=== PATIENT | male | born 1950 | race Caucasian/White ===

== ENCOUNTER 2017-03-04 08:57 | Inpatient (IN) ==
--- NOTE | 2017-03-04 07:17 | Anesthesia Evaluation PreOp ---
Date of Encounter: 03/04/17 Time of Encounter: 09:34 - Past History Planned Operation: Endograft AAA Cardiac History: HTN, Hyperlipidemia, Cardiac Stent (x2 in 2007, repeat cath 2016 without intervention per patient), Other (ischemic heart disease PAD) Pulmonary History: Smoker, Pack/yr (40) [employer] History: Other (complains of neuropathic pain in bilateral legs) Other Medical History: Denies Any Significant HX, Diabetes Type II (He reports he is pre-diabetic) Anesthesia History: No Prior Anesthetic Complications, Past Anesthesia ( bilateral TKA,) Alcohol Use: none Drug use: none Medications and Allergies 3 Allergy/AdvReac Type Severity Reaction Status Date / Time No Known Allergies Allergy Unverified 10/10/16 12:11 - Meds/Allergy Pre-op Review Medications Reviewed: Yes Allergies Reviewed: Yes Beta Blockers on Current Med List: Yes If Beta Blockers taken, Date/Time (Last Dose taken): today about 0700 Anesthesia Results - Labs Laboratory Tests 10/10/16 02/11/17 02/11/17 12:20 13:04 13:04 Hgb 13.6 Hct 40.3 Plt Count 228 PT 11.0 INR 1.0 APTT 28.9 Sodium Potassium BUN Creatinine Est GFR (Non-Af Amer) 02/27/17 15:46 Hgb Hct Plt Count PT INR APTT Sodium 134 L Potassium 4.4 BUN 29 H Creatinine 1.35 H Est GFR (Non-Af Amer) 53 L - Imaging EKG: report reviewed (NSR) Additional studies: echo: Impressions: Sinus bradycardia. HR 40-50's LVEF 50-55%. Mild left ventricular diastolic dysfunction. Normal right ventricular structure and function. Mild aortic regurgitation. Borderline evidence for aortic stenosis. Mild mitral regurgitation. Mild tricuspid regurgitation. No pulmonary hypertension. Stress: Perfusion imaging was positive for ischemia - small size partially reversible perfusion defect of the apical lateral wall. Diagnostic sensitivity of inferior wall ischemia reduced secondary to significant hepatic uptake (suspect hepatomegaly). Cannot ruleout inferior ischemia. Pharmacologic ECG was non diagnostic for ischemia. Patient had no chest pain with stress. Gated EF = 51%. The LV is not dilated. There is no evidence of TID. Ordering physician notified via eCW Anesthesia Exam Selected Entries 03/04/17 09:22 Temperature 97.4 F L Pulse Rate 62 Respiratory Rate 18 Blood Pressure 141/74 O2 Sat by Pulse Oximetry 95 Weight: 111kg NPO (# of Hours): 8 - HEENT Pupil (Motor): EOMI Mallampati: III Teeth: Missing, Poor dentition Oral Opening: Greater than 3 - [employer] LOC: Oriented [employer]ATOR Motor: Normal RUE, Normal LUE, Normal RLE, Normal LLE, Normal Face [employer] Sensory: Normal: RUE, LUE, RLE, LLE, Face - Cardiac Rhythm: Regular Murmur: Systolic (grade 2) JVD: No - Pulmonary Breath Sounds: bilateral Clear Respiratory Effort: Symmetrical Anesthesia Assess/Plan ASA Score: 4 Modified Jessica Scale for Level of Consciousness: Cooperative, oriented, and tranquil Anesthetic Plan: General Monitoring Plan: Standard Monitors, A-Line Recovery Plan: PACU (Discussed GA, lines and potential need for blood products, agrees to proceed)
[2017-03-04] MEDS ORDERED: CeFAZolin Syr 2,000MG/20 ML 2,000 MG/20 ML SYRINGE IVPB ONE (09:14)
[2017-03-04] MEDS ORDERED: Lidocaine -MPF 1% 2 ML VIAL ID ONE (09:14)
[2017-03-04] MEDS ORDERED: Vancomycin 1,750 MG in D5% in Water 500 ML IVPB ONE (09:14)
[2017-03-04] MEDS ORDERED: Ringers Solution, Lactated 1,000 ML IVC SCH (09:15)
[2017-03-04] MEDS ORDERED: Albuterol 2.5 MG/3 ML NEBULIZER IH ONE (09:38)
[2017-03-04] MEDS ORDERED: Heparin 1,000 UNITS/500 mL NS 1,500 ML ONE (10:00)
--- NOTE | 2017-03-04 10:01 | History & Physical Report ---
Date of Encounter: 03/04/17 Time of Encounter: 09:55 24 Hour HP Update - Instructions Instructions: If the History and Physical is less than 30 days old and was completed prior to A.M. admission and or procedure and has NOT been updated on calendar day of procedure please complete this update prior to performing procedure. - Update Patient reports changes in Medical Condition: No Changes in examination, assessment, or condition: No Changes in Medication: No Preop tests/diagnostics Reviewed: Yes Surgery Remains Indicated: Yes Consent for Planned Operative Procedure(s) Verified: Yes - Pre-Operative Checklist Preoperative Checklist Indicated: Yes Prophylactic Antibiotic Ordered: Yes (vancomycin due to MRSA risk) Home Medications Include Beta Godfrey: Yes Beta Godfrey Taken Today (Day of Surgery): Yes Beta Godfrey Taken Yesterday (Day Prior to Surgery): Yes Is VTE Prophylaxis Indicated?: Yes
[2017-03-04] MEDS ORDERED: Ondansetron 4 MG/2 ML VIAL IVP ONE (12:12)
[2017-03-04] MEDS ORDERED: *HR* Promethazine 25 MG/ML VIAL IVP PRN (12:12)
[2017-03-04] MEDS ORDERED: *HR* Labetalol 20 MG/4 ML SYRINGE IVP PRN ×2 (12:12→15:55)
[2017-03-04] MEDS ORDERED: EPHEDrine 50 MG/ML VIAL ONE (12:34)
[2017-03-04] MEDS ORDERED: *HR* FentaNYL (PF) 100 MCG/2 ML VIAL ONE (12:34)
[2017-03-04] MEDS ORDERED: Dexamethasone 4 MG/ML VIAL ONE (12:34)
[2017-03-04] MEDS ORDERED: *HR* Propofol 200 MG/20 ML VIAL IVP ONE (12:34)
[2017-03-04] MEDS ORDERED: Lidocaine -MPF 4% 5 ML AMPUL ONE (12:34)
[2017-03-04] MEDS ORDERED: Ondansetron 4 MG/2 ML VIAL ONE (12:34)
[2017-03-04] MEDS ORDERED: *HR* Heparin 5,000 UNIT/ML VIAL ONE (12:34)
[2017-03-04] MEDS ORDERED: *HR* Succinylcholine 200 MG/10 ML VIAL IVP ONE (12:34)
[2017-03-04] MEDS ORDERED: *HR* Phenylephrine 10 MG/ML VIAL ONE (12:34)
[2017-03-04] MEDS ORDERED: *HR* Midazolam HCl 2 MG/2 ML VIAL ONE ×2 (12:34)
[2017-03-04] MEDS ORDERED: Heparin 1,000 UNITS/500 mL NS 500 ML ONE (12:34)
[2017-03-04] MEDS ORDERED: Lidocaine -MPF 2% 2 ML VIAL ONE ×2 (12:34)
[2017-03-04] MEDS ORDERED: *HR* Rocuronium Bromide 50 MG/5 ML VIAL ONE (12:34)
[2017-03-04] MEDS ORDERED: *HR* HYDROmorphone 2 MG/ML SYRINGE ONE (13:20)
--- NOTE | 2017-03-04 14:17 | Operative Note ---
Date of procedure: 03/04/17 Pre-op diagnosis: 5.3cm Abdominal Aortic Aneurysm Post-op diagnosis: same Procedure: 1. Introduction of catheter into the aorta via right common femoral artery. 2. Introduction of catheter into the aorta via left common femoral artery. 3. Right femoral vessel exposure for endograft placement. 4. Left femoral vessel exposure for endograft placement. 5. Endograft repair of abdominal aortic aneurysm with Cook Zenith graft and two docking limbs including radiologic supervision and interpretation. Complications: None Anesthesia: GETA Surgeon: Sean Portillo Estimated blood loss (cc): 100 Specimen: None Condition: stable Disposition: PACU Procedure in Detail: Indications: The patient is a 66 year old male with a history of coronary artery disease, hypertension, diabetes and tobacco abuse. He was found to have a 5.3cm infrarenal abdominal aortic aneurysm. His anatomy was appropriate for endograft placement. Repair was recommended to reduce his risk of rupture. Procedure: The patient was identified, brought to the operating room and placed in the supine position on the operating room table. After induction of general endotracheal anesthesia, the patient was cleaned and draped in normal sterile fashion. Oblique incisions were made over both groins sharply. Hemostasis was obtained with electrocautery. Using blunt and sharp and electrocautery dissection, the right and left common, deep and superficial femoral arteries were dissected circumferentially and surrounded with Vesseloops. At this point, the patient received 5000 units of heparin intravenously and then bilateral femoral punctures with large-bore needles were performed. Bentson wires were advanced into the aorta under fluoroscopic view. Given the anatomy, the main body was selected to be the right side of the patient. The needles were exchanged for bilateral #8-Hungarian sheaths and a long Pigtail catheter was advanced over the right wire into the aortic arch. The wire was replaced with a Lunderquist wire. The catheter was removed and repositioned in the suprarenal aorta via the left femoral artery. The main body was inserted over the Lunderquist wire with the contralateral limb being in the anterolateral position. An aortogram was then performed at the level of the renal artery. The graft was positioned just below the renal arteries and the first 2 segments were deployed. A repeat aortogram revealed adequate infrarenal placement. The graft was then deployed until the contralateral limb exposed. After confirming adequate infrarenal placement, the suprarenal stent was deployed in the usual fashion. The contralateral limb was then selected with a Bentson wire using a guiding catheter. Intragraft placement of the wire was confirmed by placing the pigtail and spinning it freely as well as injecting a small amount of contrast. An oblique view of the pelvis was performed with contrast to size the left extension limb. The #8-Hungarian sheath was removed and exchanged for the appropriate limb, which was advanced under fluoroscopic view and positioned. It was then expanded and the introducer was removed. The remaining portion of the main body was deployed, the top cap was retrieved and the introducer was removed. An oblique view of the right pelvis was performed in a similar fashion to determine the length of the graft on the right. The graft extension was then advanced on the right and positioned in the usual fashion. Upon completion of the graft docking limb extension, a Coda balloon was then advanced into the graft proximal and distal endpoints as well as overlap were expanded with gentle pressure. The balloon was left in the suprarenal position and a Flush catheter was placed in the suprarenal aorta. A Flush completion angiogram revealed no evidence of an endoleak. Tension was applied to the Vesseloops in the groin. The bilateral sheaths were then removed. After confirming hemodynamic stability, the wires were then removed. The bilateral arteriotomies were repaired with a running 6-0 Prolene. Antibiotic irrigation was infused into the groin. Platelet rich and platelet poor plasma were infused into the incisions. The bilateral groins were closed with a single layer of 2-0 Vicryl followed by two layers of 3-0 Vicryl followed by a layer of 3-0 monocryl in the subcuticular region. Sterile dressings were applied. The patient was then extubated and taken to the recovery room in stable condition.
[2017-03-04] MEDS: *HR* HYDROmorphone (PF) 1 MG/ML SYRINGE IVP PRN ×4 (14:30→15:01)
--- NOTE | 2017-03-04 15:05 | Anesthesia Evaluation Post Op ---
Date of Encounter: 03/04/17 Time of Encounter: 15:04 - Vital Signs Vital Signs: Selected Entries 03/04/17 14:46 03/04/17 14:56 Temperature 98.1 F Pulse Rate 60 Respiratory Rate 18 Blood Pressure 114/70 O2 Sat by Pulse Oximetry 96 - Lungs Lungs: Clear Ascult./Percussion - Airway Airway: Non-obstructed - Cardiovascular Regular Rate - Mental Status Mental Status: Alert & Oriented, Answers Appropriately - Pain Pain Scale: 0 Pain Scale used: Numeric (1 - 10) - Nausea Vomiting Nausea Vomiting: Not Present - Hydration Hydration: Ice chips, Puente catheter - Discharge PostOp Status: Transfer Patient to floor
[2017-03-04] MEDS ORDERED: Dextrose Gel 15 GM PO PRN ×2 (15:55)
[2017-03-04] MEDS ORDERED: Ondansetron 4 MG/2 ML VIAL IVP PRN (15:55)
[2017-03-04] MEDS ORDERED: *HR* Dextrose 50 % in Water (Syg) 50 ML SYRINGE IVP PRN (15:55)
[2017-03-04] MEDS ORDERED: D5% in Water 1,000 ML IVC PRN (15:55)
[2017-03-04] MEDS ORDERED: *HR* Morphine 2 MG/ML SYRINGE IVP PRN (15:55)
[2017-03-04] MEDS ORDERED: Acetaminophen 325 MG TABLET PO PRN (15:55)
[2017-03-04] MEDS ORDERED: *HR* HYDROcodone/Acet 5/325 mg TABLET PO PRN (15:55)
[2017-03-04] MEDS ORDERED: Naloxone 0.4 MG/ML INJ IVP PRN (15:55)
[2017-03-04] MEDS: *HR* OxyCODONE Immed Rel 5 MG TABLET PO PRN (16:28)
[2017-03-04] MEDS: 0.9 % Sodium Chloride 1,000 ML IVC SCH (16:29)
[2017-03-04] MEDS: Pregabalin 50 MG CAPSULE PO SCH ×2 (16:29→21:57)
[2017-03-04] MEDS: Insulin LISPRO 300 UNITS/3 ML VIAL SQ SCH (16:30)
[2017-03-04] MEDS: CeFAZolin Premix DUPLEX 2,000 MG/50 ML BAG IVPB SCH (16:32)
[2017-03-04] MEDS: *HR* Metoprolol 5 MG/5 ML VIAL IVP SCH (18:10)
[2017-03-04] MEDS ORDERED: Insulin LISPRO 300 UNITS/3 ML VIAL SQ SCH (21:00)
[2017-03-05] MEDS: *HR* Metoprolol 5 MG/5 ML VIAL IVP SCH ×2 (00:36→06:18)
[2017-03-05] MEDS: *HR* OxyCODONE Immed Rel 5 MG TABLET PO PRN ×2 (00:40→06:14)
[2017-03-05] MEDS: CeFAZolin Premix DUPLEX 2,000 MG/50 ML BAG IVPB SCH (00:41)
[2017-03-05 05:23] LABS: Basophils % 0.2 %; Eosinophils % 0.1 %; Hematocrit 36.2 % (37.5-50.1); Hemoglobin 12.2 g/dL (12.9-16.9); Immature Granulocytes % 0.7 % (0-4); Lymphocytes # 1.2 K/mcL (0.6-4.6); Lymphocytes % 9.2 %; Mean Corpuscular HGB Conc 33.7 g/dL (31.6-35.5); Mean Corpuscular Hemoglobin 32.5 pg (28.0-33.3); Mean Corpuscular Volume 96.5 fL (83.0-100.0); Mean Platelet Volume 11.9 fL (9.4-12.4); Monocytes % 7.8 %; Neutrophils # 10.3 K/mcL (1.6-8.9); Platelet Count 158 K/mcL (140-400); Red Blood Count 3.75 M/mcL (4.19-5.50); Red Cell Distribution Width 14.2 % (11.5-14.5)
[2017-03-05 05:38] LABS: BUN/Creatinine Ratio 18 (6-26); Blood Urea Nitrogen 21 mg/dL (8-26); Calcium 8.8 mg/dL (8.6-10.8); Carbon Dioxide 23 mEq/L (19-29); Chloride 99 mEq/L (98-109); Glucose 136 mg/dL (70-99); Osmolality,Calculated 279 (280-300); Sodium 132 mEq/L (136-145); eGFR For African Americans > 60 (> 60); eGFR For Non-African Americans > 60 (> 60)
[2017-03-05] MEDS ORDERED: *HR* Heparin 5,000 UNIT/ML VIAL SQ SCH ×2 (06:00)
[2017-03-05 07:30] VITALS: BP 116/72
[2017-03-05] MEDS: Insulin LISPRO 300 UNITS/3 ML VIAL SQ SCH ×2 (07:46→12:18)
[2017-03-05] MEDS: Pregabalin 50 MG CAPSULE PO SCH (07:47)
[2017-03-05] MEDS ORDERED: CeFAZolin Syr 2,000MG/20 ML 2,000 MG/20 ML SYRINGE IVPB SCH (08:00)
--- NOTE | 2017-03-05 08:03 | Discharge Summary ---
Date of Encounter: 03/05/17 Time of Encounter: 08:20 - Discharge Diagnosis (1) Abdominal aortic aneurysm Priority: Primary Status: Chronic Comments: The patient is postoperative day #1 after endograft repair of his abdominal aortic aneurysm. He is hemodynamically stable and his pain is well controlled. His incisions are healing. He is tolerating a diet. He will be discharged today. Qualifiers: Presence of rupture: without rupture Qualified Code(s): I71.4 - Abdominal aortic aneurysm, without rupture (2) Essential hypertension Priority: Secondary Status: Chronic (3) Mixed hyperlipidemia Priority: Secondary Status: Chronic Comments: The patient has acute expected postoperative blood loss anemia. He is hemodynamically stable without evidence of ongoing blood loss. (4) Acute blood loss anemia Priority: Secondary Status: Acute Comments: The patient has acute expected postoeprative blood loss anemia. He is hemodynamically stable without evidence of ongoing blood loss. (5) Tobacco abuse Priority: Secondary Status: Chronic Comments: He was counseled regarding smoking cessation. - Discharge Medications Prescriptions: OxyCODONE/APAP 5/325 [Percocet 5/325 MG] 1 each PO Q6HR PRN #25 tablet PRN Reason: POSTOPERATIVE PAIN Home Medications: Aspirin [Lo-Dose Aspirin EC] 81 mg PO DAILY 03/04/17 [History] Atorvastatin [Lipitor] 40 mg PO HS 03/04/17 [History] Clopidogrel [Plavix] 75 mg PO DAILY 03/04/17 [History] Lisinopril [Zestril] 20 mg PO DAILY 03/04/17 [History] Metoprolol [Lopressor] 25 mg PO BID 03/04/17 [History] Omeprazole [PriLOSEC] 20 mg PO DAILY 03/04/17 [History] Pregabalin [Lyrica] 200 mg PO TID 03/04/17 [History] metFORMIN [Glucophage] 500 mg PO 0800 03/04/17 [History] OxyCODONE/APAP 5/325 [Percocet 5/325 MG] 1 each PO Q6HR PRN #25 tablet 03/05/17 [Rx] Allergies/Adverse Reactions: 3 Allergy/AdvReac Type Severity Reaction Status Date / Time No Known Allergies Allergy Verified 03/04/17 09:45 Date of admission: 03/04/17 15:10 Primary care physician: Chuckie Byrne, DO Procedure(s) Performed: Endograft repair of abdominal aortic aneurysm Discharging clinician: Sean Portillo Anticipated date of discharge: 03/05/17 - Patient Status Disposition: Home, Self-Care Condition: Good Functional capacity at discharge: independent ambulation Overall status at discharge: patient is back to baseline - Discharge Instructions Follow Up With: Sean Portillo MD [Partnered Physician] - 04/08/17 1:00 pm Chuckie Byrne DO [Primary Care Provider] - 03/10/17 1:00 pm () Additional Instructions: May remove bandage and shower 03/06/17. Wash wound gently and pat to dry. Apply dry gauze to wounds daily for 7 days. No tub baths or swimming until 03/28/17. Call Dr. Portillo at [phone] with questions or concerns. HOLD METFORMIN UNTIL 03/06/17. - Diet and Activity Activity: increase activity as tolerated Diet: diabetic diet - Hospital Course Hospital course: Mr. Rueda is a 66 year old male admitted on 03/04/17. He was taken to the OR and underwent an endograft repair of his abdominal aortic aneurysm. He tolerated the procedure well and was discharged to home on postoprative day #1 without complications. Time spent discussing smoking cessation with patient: 3 to 10 minutes - Time Spent with Patient Total time spent providing and/or coordinating discharge services: Exam Vital Signs, Last 4 Hours Temp Pulse Resp BP Pulse Ox 03/05/17 07:27 97.6 F 55 18 116/72 98 General: Present: Conversant, No Apparent Distress HEENT: Present: Atraumatic, Pupils equal Cardiac: Present: Reg Rate and Rhythm Lungs: Present: Normal Breath Sounds Neuro: Present: Alert and responsive, No focal deficits noted Abdomen: Present: Soft, Non-tender. Absent: Masses Vascular: Present: Normal capillary refill, Surgical incisions (no hematoma). Absent: Cyanosis, Edema Skin: Present: No rashes noted on visualized skin - VTE Documentation of Mechanical Device: Intermittent pneumatic compression device
[2017-03-05] MEDS ORDERED: Lisinopril 20 MG TABLET PO SCH (09:00)
[2017-03-05] MEDS ORDERED: Aspirin Enteric Coated 81 MG Tablet PO SCH (09:00)
[2017-03-05] MEDS: 0.9 % Sodium Chloride 1,000 ML IVC SCH (12:17)
== END 2017-03-05 13:25 | disposition home or self-care (01) | DRG 269 ==
LOC: SAMDAY 08:57 → 2NNU 15:10
PROVIDERS: ADMIT Surgery; ATTEND Surgery

== ENCOUNTER 2017-05-23 14:25 | Inpatient (IN) ==
[2017-05-23] MEDS ORDERED: *HR* OxyCODONE/APAP 5/325 TABLET PO ONE (14:45)
--- NOTE | 2017-05-23 15:03 | Emergency Department Note ---
Disposition Clinical Impression: Pain and swelling of right knee, Hyponatremia Disposition: Still a Patient Condition: Fair Referrals: Chuckie Byrne DO [Primary Care Provider] - Forms: ED Satisfaction Letter Time of Disposition: 18:57 Extremity Problem HPI - General Chief complaint: ED Extremity Problem,Nontraumatic Stated complaint: R knee swelling Time Seen by Provider: 05/23/17 14:43 Source: patient Limitations: no limitations Nursing Notes Reviewed: Yes Vital Signs Reviewed: Yes - History of Present Illness HPI Narrative: Alert and oriented and nontoxic-appearing 66-year-old male presents for evaluation of right knee pain and swelling. He states this began approximately one week ago. He believes that the offending incident was while he was walking up the steps of his porch, he felt "my kneecap Crunched". He also complains of pain behind the knee as well. He denies any falls or any other injuries. He denies any fever, chills, nausea, vomiting, shortness of breath, or calf pain/ swelling. Pt Subjective Complaint: joint swelling, joint paint Onset (ago): week(s) (1) Consistency: Worsening Injury Location: right, knee Pain Scale: 0 Quality: aching Improves with: nothing Worsens with: range of motion, weight bearing, walking, palpation Associated symptoms: Denies: fever - Related Data Home Medications Medication Instructions Recorded Confirmed Aspirin [Lo-Dose Aspirin EC] 81 mg PO DAILY 03/04/17 03/04/17 Atorvastatin [Lipitor] 40 mg PO HS 03/04/17 03/04/17 Clopidogrel [Plavix] 75 mg PO DAILY 03/04/17 03/04/17 Lisinopril [Zestril] 20 mg PO DAILY 03/04/17 03/04/17 Metoprolol [Lopressor] 25 mg PO BID 03/04/17 03/04/17 Omeprazole [PriLOSEC] 20 mg PO DAILY 03/04/17 03/04/17 Pregabalin [Lyrica] 200 mg PO TID 03/04/17 03/04/17 metFORMIN [Glucophage] 500 mg PO 0800 03/04/17 03/04/17 Previous Rx's Medication Instructions Recorded OxyCODONE/APAP 5/325 [Percocet 1 each PO Q6HR PRN #25 tablet 03/05/17 5/325 MG] Docusate Sodium [Colace] 100 mg PO BID #20 capsule 03/14/17 OxyCODONE/APAP 5/325 [Percocet 1 each PO Q6HR PRN #9 tablet 03/14/17 5/325 MG] Allergies Allergy/AdvReac Type Severity Reaction Status Date / Time No Known Allergies Allergy Verified 03/04/17 09:45 All systems ED: reviewed and negative except as stated. Constitutional: Denies: fever, chills, weakness, weight change Eyes: Denies: eye pain, eye discharge, vision change ENT ED: Denies: ear pain, throat pain, dental pain, hearing loss, epistaxis, congestion, dysphagia Cardiovascular: Denies: chest pain, palpitations, dyspnea on exertion, edema, syncope Respiratory: Denies: cough, dyspnea, wheezes, hemoptysis, stridor Gastrointestinal: Denies: abdominal pain, nausea, vomiting, diarrhea, constipation, hematemesis, melena, hematochezia Genitourinary: Denies: urgency, dysuria, frequency, hematuria Musculoskeletal: Reports: as per HPI, arthralgia (Right knee pain and swelling) . Denies: back pain, neck pain, myalgia Integumentary: Denies: rash, abrasion, lesions Neurological: Denies: headache, weakness, numbness, paresthesias, confusion, abnormal gait, vertigo Psychiatric: Denies: anxiety, depression, suicidal thoughts, homicidal thoughts , auditory hallucinations, visual hallucinations Endocrine: Denies: fatigue Hematological/Lymphatic: Denies: easy bleeding, easy bruising Allergic/Immunologic: Denies: facial swelling, urticaria Past Medical History - Past Medical History Attestation: Yes The following information was validated with the patient. Source: patient, nursing notes reviewed Medical history: Reports: diabetes, GERD, hyperlipidemia, hypertension, myocardial infarction Psychiatric history: Reports: no psych history - Social History Smoking Status: Current every day smoker Smokeless Tobacco Status: No Alcohol use: Reports: occasionally Drug use: Reports: none Physical Exam - General Limitations: no limitations General appearance: alert, anxious - Eye Eye exam: Present: normal appearance, PERRL, EOMI. Absent: nystagmus - ENT ENT exam: mucous membranes moist - Neck Neck exam: Present: normal inspection, full ROM, trachea midline - Chest Chest inspection: Present: normal inspection, symmetric chest wall rise - Extremities Exam Extremities exam: Present: joint swelling. Absent: pedal edema - Expanded Lower Extremity Exam Upper leg exam: Present: normal inspection, full ROM Knee exam: Present: tenderness (Right knee diffusely tender to palpation), swelling (Noticeable edema of the right), crepitus, erythema, pain with valgus, pain with varus, knee extension intact. Absent: full ROM (Range of motion limited by pain, right knee), abrasion, laceration, ecchymosis, deformity Lower leg exam: Present: normal inspection, full ROM. Absent: palpable cord, Homans' sign Ankle exam: Present: normal inspection, full ROM Foot/toe exam: Present: normal inspection, full ROM Neurovascular/Tendon exam: Absent: motor deficit, sensory deficit, tendon deficit Gait: observed and limited by pain - Neurological Exam Neurological exam: Present: alert, oriented X3 - Psychiatric Psychiatric exam: Present: normal affect, normal mood - Skin Skin exam: Present: warm, dry, intact, normal color Course Course Narrative: 1804: I spoke with Dr. Storey, orthopedic surgeon hair salon manager. Dr. Storey states the joint will require aspiration. He has offered to come to the emergency department and perform the services which is gratefully welcomed. I have discussed this patient's case with Dr. Shoemaker. Dr. Shoemaker has had a [id number] evaluation with patient. 1850: Dr. Storey has finished removing 370 mL of bloody/purulent fluid from the synovium of the right knee. Samples of this at first Gram stain, cell count , culture, and crystal analysis. Vital Signs Temperature 97.8 F 05/23/17 14:34 Pulse Rate 70 05/23/17 14:34 Respiratory Rate 18 05/23/17 14:34 Blood Pressure 112/68 05/23/17 14:34 O2 Sat by Pulse Oximetry 96 05/23/17 14:34 Temperature 97.9 F 05/23/17 17:22 Pulse Rate 59 05/23/17 17:22 Respiratory Rate 18 05/23/17 17:22 Blood Pressure 98/65 05/23/17 17:22 O2 Sat by Pulse Oximetry 95 05/23/17 17:22 Oxygen Delivery Oxygen Delivery Room Air Extremity Problem, Nontraumati - Medical Records Medical records reviewed: Yes I reviewed the patient's medical records. - Lab Data Lab results reviewed: Yes I reviewed the patient's lab results. Lab results narrative: Lab Results 05/23/17 05/23/17 05/23/17 Range/Units 15:24 15:24 15:24 WBC 12.2 H (4.3-11.1) K/mcL RBC 3.72 L (4.19-5.50) M/mcL Hgb 11.2 L (12.9-16.9) g/dL Hct 33.3 L (37.5-50.1) % MCV 89.5 (83.0-100.0) fL MCH 30.1 (28.0-33.3) pg MCHC 33.6 (31.6-35.5) g/dL RDW 14.2 (11.5-14.5) % Plt Count 324 (140-400) K/mcL MPV 10.0 (9.4-12.4) fL Immature Gran % 1.2 (0-4) % Seg Neutrophils % 74.9 % Lymphocytes % 11.2 % Monocytes % 11.6 % Eosinophils % 0.4 % Basophils % 0.7 % Neutrophils # 9.1 H (1.6-8.9) K/mcL Lymphocytes # 1.4 (0.6-4.6) K/mcL Monocytes # 1.4 H (0.0-1.3) K/mcL Eosinophils # 0.1 (0.0-0.6) K/mcL Basophils # 0.1 (0.0-0.2) K/mcL ESR 124 H (0-10) mm/hr Sodium (136-145) mEq/L Potassium (3.5-5.1) mEq/L Chloride (98-107) mEq/L Carbon Dioxide (23-29) mEq/L BUN (8-23) mg/dL Creatinine (0.70-1.30) mg/dL Est GFR ( Amer) (> 60) Est GFR (Non-Af Amer) (> 60) BUN/Creatinine Ratio (6-26) Glucose (70-105) mg/dL Calculated Osmolality (280-300) Uric Acid (2.3-7.6) mg/dL Calcium (8.6-10.3) mg/dL C-Reactive Protein (Less than 10) mg/L Specimen Rejected Miscellaneous 05/23/17 Range/Units 16:17 WBC (4.3-11.1) K/mcL RBC (4.19-5.50) M/mcL Hgb (12.9-16.9) g/dL Hct (37.5-50.1) % MCV (83.0-100.0) fL MCH (28.0-33.3) pg MCHC (31.6-35.5) g/dL RDW (11.5-14.5) % Plt Count (140-400) K/mcL MPV (9.4-12.4) fL Immature Gran % (0-4) % Seg Neutrophils % % Lymphocytes % % Monocytes % % Eosinophils % % Basophils % % Neutrophils # (1.6-8.9) K/mcL Lymphocytes # (0.6-4.6) K/mcL Monocytes # (0.0-1.3) K/mcL Eosinophils # (0.0-0.6) K/mcL Basophils # (0.0-0.2) K/mcL ESR (0-10) mm/hr Sodium 119 L* (136-145) mEq/L Potassium 6.0 H (3.5-5.1) mEq/L Chloride 92 L (98-107) mEq/L Carbon Dioxide 21 L (23-29) mEq/L BUN 21 (8-23) mg/dL Creatinine 1.70 H (0.70-1.30) mg/dL Est GFR ( Amer) 49 L (> 60) Est GFR (Non-Af Amer) 41 L (> 60) BUN/Creatinine Ratio 12 (6-26) Glucose 102 (70-105) mg/dL Calculated Osmolality 251 L (280-300) Uric Acid 5.0 (2.3-7.6) mg/dL Calcium 8.9 (8.6-10.3) mg/dL C-Reactive Protein 106 H (Less than 10) mg/L Specimen Rejected Result diagrams: 05/23/17 15:24 05/23/17 16:17 Lab Results 05/23/17 05/23/17 05/23/17 Range/Units 15:24 15:24 15:24 WBC 12.2 H (4.3-11.1) K/mcL RBC 3.72 L (4.19-5.50) M/mcL Hgb 11.2 L (12.9-16.9) g/dL Hct 33.3 L (37.5-50.1) % MCV 89.5 (83.0-100.0) fL MCH 30.1 (28.0-33.3) pg MCHC 33.6 (31.6-35.5) g/dL RDW 14.2 (11.5-14.5) % Plt Count 324 (140-400) K/mcL MPV 10.0 (9.4-12.4) fL Immature Gran % 1.2 (0-4) % Seg Neutrophils % 74.9 % Lymphocytes % 11.2 % Monocytes % 11.6 % Eosinophils % 0.4 % Basophils % 0.7 % Neutrophils # 9.1 H (1.6-8.9) K/mcL Lymphocytes # 1.4 (0.6-4.6) K/mcL Monocytes # 1.4 H (0.0-1.3) K/mcL Eosinophils # 0.1 (0.0-0.6) K/mcL Basophils # 0.1 (0.0-0.2) K/mcL ESR 124 H (0-10) mm/hr Sodium (136-145) mEq/L Potassium (3.5-5.1) mEq/L Chloride (98-107) mEq/L Carbon Dioxide (23-29) mEq/L BUN (8-23) mg/dL Creatinine (0.70-1.30) mg/dL Est GFR ( Amer) (> 60) Est GFR (Non-Af Amer) (> 60) BUN/Creatinine Ratio (6-26) Glucose (70-105) mg/dL Calculated Osmolality (280-300) Uric Acid (2.3-7.6) mg/dL Calcium (8.6-10.3) mg/dL C-Reactive Protein (Less than 10) mg/L Specimen Rejected Miscellaneous 05/23/17 Range/Units 16:17 WBC (4.3-11.1) K/mcL RBC (4.19-5.50) M/mcL Hgb (12.9-16.9) g/dL Hct (37.5-50.1) % MCV (83.0-100.0) fL MCH (28.0-33.3) pg MCHC (31.6-35.5) g/dL RDW (11.5-14.5) % Plt Count (140-400) K/mcL MPV (9.4-12.4) fL Immature Gran % (0-4) % Seg Neutrophils % % Lymphocytes % % Monocytes % % Eosinophils % % Basophils % % Neutrophils # (1.6-8.9) K/mcL Lymphocytes # (0.6-4.6) K/mcL Monocytes # (0.0-1.3) K/mcL Eosinophils # (0.0-0.6) K/mcL Basophils # (0.0-0.2) K/mcL ESR (0-10) mm/hr Sodium 119 L* (136-145) mEq/L Potassium 6.0 H (3.5-5.1) mEq/L Chloride 92 L (98-107) mEq/L Carbon Dioxide 21 L (23-29) mEq/L BUN 21 (8-23) mg/dL Creatinine 1.70 H (0.70-1.30) mg/dL Est GFR ( Amer) 49 L (> 60) Est GFR (Non-Af Amer) 41 L (> 60) BUN/Creatinine Ratio 12 (6-26) Glucose 102 (70-105) mg/dL Calculated Osmolality 251 L (280-300) Uric Acid 5.0 (2.3-7.6) mg/dL Calcium 8.9 (8.6-10.3) mg/dL C-Reactive Protein 106 H (Less than 10) mg/L Specimen Rejected - Radiology Data Radiology results reviewed: Yes I reviewed the patient's radiology results. Knee X-Ray 05/23/17 14:44 IMPRESSION: Large soft tissue swelling and irregularity of the appearance and morphology of the patella. Integrity of the patellar resurfacing is indeterminate. Follow-up could be considered with CT. D/ / 05/23/2017 15:36:25 Angel Arvizu MD / diana Interpreting Provider: Angel Arvizu MD Knee CT 05/23/17 17:15 IMPRESSION: 1. Large mildly complex and nonspecific joint effusion. Findings do result in mass effect upon the patella which appears tilted and subluxed laterally. Fluid could be posttraumatic given history of trauma. If there is clinical suspicion for infection, arthrocentesis is recommended. 2. The patient is status post right total knee arthroplasty. No evidence for hardware loosening or periprosthetic fracture. 3. Atherosclerotic disease. D/ / Price Nation MD / Price Nation MD Interpreting Provider: Price Nation MD arino - Joselyn Situation: Demographics, MOA Background: Presenting Complaint, Relevant PMH, Meds, & Allergies Assessment: Vital Signs, Course and respsone to treatment, Exam Concerns, Patient/Family Expectation, Pertinant Lab Results, Outstanding Labs S.BMichael Report Given to: Dr. Vern Alves Repor Time: 18:57 Attestation Statement - Attestation Attestation: For this encounter, I have reviewed the BARTENDER HELPER or PA documentation, treatment plan, and medical decision making; and I have had face to face time with this patient. [id number] time provided Patient has a swollen right knee. History of bilateral knee replacements. He states he has required therapeutic arthrocentesis approximate half a dozen times in the past. His primary care physician recently did a diagnostic right knee arthrocentesis. I did review the results of this test which indicated no bacterial growth. The patient does have a knee that is tender, swollen, inflamed but this does not appear cellulitic. I favor this to be more an inflammatory process. Imaging studies pending. Final disposition pending but the patient will require close orthopedic follow-up if he is discharged 18:35: Dr Storey, ortho, resident to perform a knee arthrocentesis. Care will be discussed with the oncoming physician pending studies.
[2017-05-23 15:31] LABS: Basophils # 0.1 K/mcL (0.0-0.2); Basophils % 0.7 %; Eosinophils # 0.1 K/mcL (0.0-0.6); Eosinophils % 0.4 %; Hematocrit 33.3 % (37.5-50.1); Hemoglobin 11.2 g/dL (12.9-16.9); Immature Granulocytes % 1.2 % (0-4); Lymphocytes # 1.4 K/mcL (0.6-4.6); Lymphocytes % 11.2 %; Mean Corpuscular HGB Conc 33.6 g/dL (31.6-35.5); Mean Corpuscular Hemoglobin 30.1 pg (28.0-33.3); Mean Corpuscular Volume 89.5 fL (83.0-100.0); Monocytes # 1.4 K/mcL (0.0-1.3); Monocytes % 11.6 %; Neutrophils # 9.1 K/mcL (1.6-8.9); Platelet Count 324 K/mcL (140-400); Red Blood Count 3.72 M/mcL (4.19-5.50); Red Cell Distribution Width 14.2 % (11.5-14.5); Segmented Neutrophils % 74.9 %
[2017-05-23 17:07] LABS: Calcium 8.9 mg/dL (8.6-10.3)
[2017-05-23 18:57] LABS: Source,Synovial Fluid right knee
[2017-05-23] MEDS ORDERED: Vancomycin 1,750 MG in D5% in Water 500 ML IVPB ONE (19:24)
--- NOTE | 2017-05-23 19:49 | Orthopedic Consult Note ---
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 I did aspirate the right knee and obtained 370 mL of fluid which was sent to the lab for Gram stain, culture, cell count and crystal analysis. Results are pending though it is presumed to be infected based on the appearance of the fluid. He is being admitted to the hospitalist for electrolyte abnormalities. I will follow up on the results of the aspiration tomorrow and discuss logistics regarding the right knee which will likely be washout and poly-exchange versus explant and antibiotic spacer placement. I will discuss this further with my partners who performs knee surgery. History of Present Illness HPI: Mr. Rueda is a 66 year old male resident history of a right total knee replacement in 2013 at [facility]. About 6 months after the original knee replacement he sustained a medial quadriceps rupture which underwent repair however it did fail again. The patient eventually followed up with [facility] where treatment options were discussed including patellectomy however the patient had to undergo treatment for an abdominal aortic aneurysm and surgery was placed on hold. He just recovered from this in February of last year. The patient took a funny step with his right leg about 3 days ago and felt significant pain in his right knee and he went to Dr. Pulido who aspirated the right knee and cultures were apparently negative. He came to the emergency department tonight due to worsening of his symptoms. Orthopedics was consulted due to the right knee swelling due to concerns for infection. He is being admitted to the hospitalist for electrolyte abnormalities. The patient complains of isolated pain to the right knee and difficulties walking as a result. No feelings of illness or other associated signs or symptoms. It is worse with movement and better with rest. No other modifying factors. Past Med Surg Social Fam HX - Past Medical History Medical history: diabetes, GERD, hyperlipidemia, hypertension, myocardial infarction Psychiatric history: no psych history - Social History Smoking Status: Current every day smoker Smokeless Tobacco Status: No Alcohol use: occasionally Drug use: none Medications and Allergies Aspirin [Lo-Dose Aspirin EC] 81 mg PO DAILY 03/04/17 [History] Atorvastatin [Lipitor] 40 mg PO HS 03/04/17 [History] Clopidogrel [Plavix] 75 mg PO DAILY 03/04/17 [History] Lisinopril [Zestril] 20 mg PO DAILY 03/04/17 [History] Metoprolol [Lopressor] 25 mg PO BID 03/04/17 [History] Omeprazole [PriLOSEC] 20 mg PO DAILY 03/04/17 [History] Pregabalin [Lyrica] 200 mg PO TID 03/04/17 [History] metFORMIN [Glucophage] 500 mg PO 0800 03/04/17 [History] OxyCODONE/APAP 5/325 [Percocet 5/325 MG] 1 each PO Q6HR PRN #25 tablet 03/05/17 [Rx] Docusate Sodium [Colace] 100 mg PO BID #20 capsule 03/14/17 [Rx] OxyCODONE/APAP 5/325 [Percocet 5/325 MG] 1 each PO Q6HR PRN #9 tablet 03/14/17 [ Rx] 3 Allergy/AdvReac Type Severity Reaction Status Date / Time No Known Allergies Allergy Verified 03/04/17 09:45 All Systems Reviewed: A 10-system review of systems was performed and is negative for pertinent findings except as documented above in the HPI. Physical Exam - Constitutional Vitals: Temp Pulse Resp BP Pulse Ox 97.9 F 59 16 94/61 95 05/23/17 17:22 05/23/17 19:13 05/23/17 19:13 05/23/17 19:13 05/23/17 17:22 CONSTITUTIONAL -Vitals reviewed -The patient is well developed, well nourished, well groomed PSYCHIATRIC -Fully alert and oriented -Pleasant mood RIGHT UPPER EXTREMITY Inspection shows that the skin and soft tissue envelope are intact. There is a well-healed anterior midline incision at the right knee. Significant swelling with palpable effusion dramatically larger than the contralateral side. Pain with motion of the knee. Minimal overlying redness. He can dorsiflex and plantar flex ankle and toes and the foot is sensate and well-perfused. After verbal consent I did perform an arthrocentesis of the right knee using an 18- gauge needle and aspirated 370 mL of cloudy yellowish fluid. He tolerated this well. The knee feels dramatically better after aspiration. There is a palpable defect along the medial aspect of the suprapatellar region consistent with extensor mechanism defect. Fibrous feel intact laterally. He does have some strength with extension however I can palpate the patella dislocating laterally and relocating. X-ray and CT scan of the right knee show significant effusion with what appears to be patellar instability. Results - Labs Result Diagrams: 05/23/17 15:24 05/23/17 16:17 Labs: Abnormal lab results WBC 12.2 K/mcL (4.3-11.1) H 05/23/17 15:24 RBC 3.72 M/mcL (4.19-5.50) L 05/23/17 15:24 Hgb 11.2 g/dL (12.9-16.9) L 05/23/17 15:24 Hct 33.3 % (37.5-50.1) L 05/23/17 15:24 Neutrophils # 9.1 K/mcL (1.6-8.9) H 05/23/17 15:24 Monocytes # 1.4 K/mcL (0.0-1.3) H 05/23/17 15:24 ESR 124 mm/hr (0-10) H 05/23/17 15:24 Sodium 119 mEq/L (136-145) L* 05/23/17 16:17 Potassium 6.0 mEq/L (3.5-5.1) H 05/23/17 16:17 Chloride 92 mEq/L (98-107) L 05/23/17 16:17 Carbon Dioxide 21 mEq/L (23-29) L 05/23/17 16:17 Creatinine 1.70 mg/dL (0.70-1.30) H 05/23/17 16:17 Est GFR ( Amer) 49 (> 60) L 05/23/17 16:17 Est GFR (Non-Af Amer) 41 (> 60) L 05/23/17 16:17 Calculated Osmolality 251 (280-300) L 05/23/17 16:17 C-Reactive Protein 106 mg/L (Less than 10) H 05/23/17 16:17 H & H 05/23/17 Range/Units 15:24 Hgb 11.2 L (12.9-16.9) g/dL Hct 33.3 L (37.5-50.1) % All other labs normal. Consult Discharge Plan - Plan Referrals: Chuckie Byrne DO [Primary Care Provider] -
[2017-05-23] MEDS ORDERED: *HR* Morphine 2 MG/ML SYRINGE IVP PRN (19:52)
[2017-05-23] MEDS ORDERED: Naloxone 0.4 MG/ML INJ IVP PRN (19:52)
--- NOTE | 2017-05-23 19:58 | Emergency Department Note ---
Disposition Clinical Impression: Pain and swelling of right knee, Hyponatremia Disposition: Admitted As Inpatient Condition: Fair Referrals: Chuckie Byrne DO [Primary Care Provider] - Time of Disposition: 19:43 General Adult HPI - General Chief complaint: ED Extremity Problem,Nontraumatic Stated complaint: R knee swelling Time Seen by Provider: 05/23/17 14:43 Source: patient Limitations: no limitations Nursing Notes Reviewed: Yes Vital Signs Reviewed: Yes - History of Present Illness Pain Scale: 5 - Related Data Home Medications Medication Instructions Recorded Confirmed Aspirin [Lo-Dose Aspirin EC] 81 mg PO DAILY 03/04/17 03/04/17 Atorvastatin [Lipitor] 40 mg PO HS 03/04/17 03/04/17 Clopidogrel [Plavix] 75 mg PO DAILY 03/04/17 03/04/17 Lisinopril [Zestril] 20 mg PO DAILY 03/04/17 03/04/17 Metoprolol [Lopressor] 25 mg PO BID 03/04/17 03/04/17 Omeprazole [PriLOSEC] 20 mg PO DAILY 03/04/17 03/04/17 Pregabalin [Lyrica] 200 mg PO TID 03/04/17 03/04/17 metFORMIN [Glucophage] 500 mg PO 0800 03/04/17 03/04/17 Previous Rx's Medication Instructions Recorded OxyCODONE/APAP 5/325 [Percocet 1 each PO Q6HR PRN #25 tablet 03/05/17 5/325 MG] Docusate Sodium [Colace] 100 mg PO BID #20 capsule 03/14/17 OxyCODONE/APAP 5/325 [Percocet 1 each PO Q6HR PRN #9 tablet 03/14/17 5/325 MG] Allergies Allergy/AdvReac Type Severity Reaction Status Date / Time No Known Allergies Allergy Verified 03/04/17 09:45 Constitutional: Denies: fever, chills, weakness, weight change Eyes: Denies: eye pain, eye discharge, vision change ENT ED: Denies: ear pain, throat pain, dental pain, hearing loss, epistaxis, congestion, dysphagia Cardiovascular: Denies: chest pain, palpitations, dyspnea on exertion, edema, syncope Respiratory: Denies: cough, dyspnea, wheezes, hemoptysis, stridor Gastrointestinal: Denies: abdominal pain, nausea, vomiting, diarrhea, constipation, hematemesis, melena, hematochezia Genitourinary: Denies: urgency, dysuria, frequency, hematuria Musculoskeletal: Reports: as per HPI, arthralgia (Right knee pain and swelling) . Denies: back pain, neck pain, myalgia Integumentary: Denies: rash, abrasion, lesions Neurological: Denies: headache, weakness, numbness, paresthesias, confusion, abnormal gait, vertigo Psychiatric: Denies: anxiety, depression, suicidal thoughts, homicidal thoughts , auditory hallucinations, visual hallucinations Endocrine: Denies: fatigue Hematological/Lymphatic: Denies: easy bleeding, easy bruising Allergic/Immunologic: Denies: facial swelling, urticaria Past Medical History - Past Medical History Medical history: Reports: diabetes, GERD, hyperlipidemia, hypertension, myocardial infarction Psychiatric history: Reports: no psych history - Social History Smoking Status: Current every day smoker Smokeless Tobacco Status: No Alcohol use: Reports: occasionally Drug use: Reports: none Physical Exam - General Limitations: no limitations General appearance: alert, anxious Course - Reevaluation(s) Reevaluation #1: Signed out pending admission. Time: 19:57 - Consultations Consultation #1: Except at by . Antibiotics ordered. Time: 20:43 Vital Signs Temperature 97.8 F 05/23/17 14:34 Pulse Rate 70 05/23/17 14:34 Respiratory Rate 18 05/23/17 14:34 Blood Pressure 112/68 05/23/17 14:34 O2 Sat by Pulse Oximetry 96 05/23/17 14:34 Temperature 97.9 F 05/23/17 17:22 Pulse Rate 59 05/23/17 19:13 Respiratory Rate 16 05/23/17 19:13 Blood Pressure 94/61 05/23/17 19:13 O2 Sat by Pulse Oximetry 95 05/23/17 17:22 Oxygen Delivery Oxygen Delivery Room Air Medical Decision Making - Lab Data Result diagrams: 05/23/17 15:24 05/23/17 16:17 Lab Results 05/23/17 05/23/17 05/23/17 Range/Units 15:24 15:24 15:24 WBC 12.2 H (4.3-11.1) K/mcL RBC 3.72 L (4.19-5.50) M/mcL Hgb 11.2 L (12.9-16.9) g/dL Hct 33.3 L (37.5-50.1) % MCV 89.5 (83.0-100.0) fL MCH 30.1 (28.0-33.3) pg MCHC 33.6 (31.6-35.5) g/dL RDW 14.2 (11.5-14.5) % Plt Count 324 (140-400) K/mcL MPV 10.0 (9.4-12.4) fL Immature Gran % 1.2 (0-4) % Seg Neutrophils % 74.9 % Lymphocytes % 11.2 % Monocytes % 11.6 % Eosinophils % 0.4 % Basophils % 0.7 % Neutrophils # 9.1 H (1.6-8.9) K/mcL Lymphocytes # 1.4 (0.6-4.6) K/mcL Monocytes # 1.4 H (0.0-1.3) K/mcL Eosinophils # 0.1 (0.0-0.6) K/mcL Basophils # 0.1 (0.0-0.2) K/mcL ESR 124 H (0-10) mm/hr Sodium (136-145) mEq/L Potassium (3.5-5.1) mEq/L Chloride (98-107) mEq/L Carbon Dioxide (23-29) mEq/L BUN (8-23) mg/dL Creatinine (0.70-1.30) mg/dL Est GFR ( Amer) (> 60) Est GFR (Non-Af Amer) (> 60) BUN/Creatinine Ratio (6-26) Glucose (70-105) mg/dL Calculated Osmolality (280-300) Uric Acid (2.3-7.6) mg/dL Calcium (8.6-10.3) mg/dL C-Reactive Protein (Less than 10) mg/L Synovial Source Synovial Color (Straw) Synovial Appearance (Clear-Hazy) Synovial Volume mL Synovial RBC Synovial Tot Nuc Cell Synovial Seg Neuts % % Synovial Crystals (None Seen) Specimen Rejected Miscellaneous 05/23/17 05/23/17 05/23/17 Range/Units 16:17 18:51 18:51 WBC (4.3-11.1) K/mcL RBC (4.19-5.50) M/mcL Hgb (12.9-16.9) g/dL Hct (37.5-50.1) % MCV (83.0-100.0) fL MCH (28.0-33.3) pg MCHC (31.6-35.5) g/dL RDW (11.5-14.5) % Plt Count (140-400) K/mcL MPV (9.4-12.4) fL Immature Gran % (0-4) % Seg Neutrophils % % Lymphocytes % % Monocytes % % Eosinophils % % Basophils % % Neutrophils # (1.6-8.9) K/mcL Lymphocytes # (0.6-4.6) K/mcL Monocytes # (0.0-1.3) K/mcL Eosinophils # (0.0-0.6) K/mcL Basophils # (0.0-0.2) K/mcL ESR (0-10) mm/hr Sodium 119 L* (136-145) mEq/L Potassium 6.0 H (3.5-5.1) mEq/L Chloride 92 L (98-107) mEq/L Carbon Dioxide 21 L (23-29) mEq/L BUN 21 (8-23) mg/dL Creatinine 1.70 H (0.70-1.30) mg/dL Est GFR ( Amer) 49 L (> 60) Est GFR (Non-Af Amer) 41 L (> 60) BUN/Creatinine Ratio 12 (6-26) Glucose 102 (70-105) mg/dL Calculated Osmolality 251 L (280-300) Uric Acid 5.0 (2.3-7.6) mg/dL Calcium 8.9 (8.6-10.3) mg/dL C-Reactive Protein 106 H (Less than 10) mg/L Synovial Source right knee Synovial Color [place] (Straw) Synovial Appearance Cloudy A (Clear-Hazy) Synovial Volume 10.0 mL Synovial RBC TNP Synovial Tot Nuc Cell TNP Synovial Seg Neuts % 100 % Synovial Crystals No Crystals Seen (None Seen) Specimen Rejected Critical Care Time Critical Care Time: Yes Total Critical Care Time: 35 Attestation: Critical care performed: Time is exclusive of separately billable procedures. Time includes: direct patient care, patient reassessment, coordination of patient care, interpretation of data (laboratory data, radiology data, and respiratory data), review of patient's medical records, medical consultation and documentation of patient care. Procedures included in critical care time: Procedures excluded from critical care time:
[2017-05-23] MEDS ORDERED: Vancomycin 0 MG in D5% in Water 250 ML IVPB SCH (20:00)
--- NOTE | 2017-05-23 20:01 | Internal Med History&Physical ---
Date of Encounter: 05/23/17 Time of Encounter: 19:58 Assessment and Plan (1) Pain and swelling of right knee Current visit: Yes Status: Acute admitted concerning for septic joint. Joint tapped by ortho with fluid analysis pending but clinically, fluid looks cloudy and clinically septic joint until proven otherwise IV vanco, pharmacy to dose, monitoring level IV pain med for pain control NPO after MN pending ortho re-eval (2) Hyponatremia Current visit: Yes Status: Acute asymptomatic w/o neuro or clinical compromise appear new in the last 1-2 months per review trial gentle 0.9 NS IVF, repeat NA in the a.m (3) CAD (coronary artery disease) Current visit: Yes Status: Acute s/p stent on DAPT check EKG in the a.m as part of pre-op eval Qualifiers: Associated angina: without angina Qualified Code(s): I25.10 - Atherosclerotic heart disease of [place] coronary artery without angina pectoris (4) Diabetes mellitus Current visit: Yes Status: Acute hold metformin, ISS for now Qualifiers: Diabetes mellitus type: type 2 Diabetes mellitus complication status: without complication Qualified Code(s): E11.9 - Type 2 diabetes mellitus without complications (5) Essential hypertension Current visit: No Status: Chronic continue med (6) Mixed hyperlipidemia Current visit: No Status: Chronic (7) Tobacco abuse Current visit: No Status: Chronic nicotine patch Internal Medicine - H&P: HPI Chief complaint: Right knee pain and swelling History of present illness: Mr. Rueda is a 66 year old male who presents with Right knee pain and swelling x 3 days. Admitted for suspected sepsis joint. He experienced right knee swelling x 3 days, throbbing in quality, 10 , associated with local swelling. Denies fever/chills. He has b/l knee replacement Right in 2012 and Left in 2013 at [facility]. He reports stepping wrong on left knee 1.5 weeks ago while at his front porch and felt his knee cap slopped and went out. He has a hx of HTN, chronic 1 ppd smoker, CAD/DC last in 2015 s/o 2 stents , first in 2007 and later [address]/CT knee RT wo con IMPRESSION: 1. Large mildly complex and nonspecific joint effusion. Findings do result in mass effect upon the patella which appears tilted and subluxed laterally. Fluid could be posttraumatic given history of trauma. If there is clinical suspicion for infection, arthrocentesis is recommended. 2. The patient is status post right total knee arthroplasty. No evidence for hardware loosening or periprosthetic fracture. 3. Atherosclerotic disease. XR/XR knee 3V RT IMPRESSION: Large soft tissue swelling and irregularity of the appearance and morphology of the patella. Integrity of the patellar resurfacing is indeterminate. Follow-up could be considered with CT. Past Med Surg Social Fam HX - Past Medical History Medical history: diabetes, GERD, hyperlipidemia, hypertension, myocardial infarction Psychiatric history: no psych history - Past Surgical History Surgical History: other (b/l knee replacement surgery, stent) - Social History Smoking Status: Current every day smoker Smokeless Tobacco Status: No Alcohol use: occasionally Drug use: none - Additional Family History Additional family history: HTN Internal Medicine - H&P: Meds Aspirin [Lo-Dose Aspirin EC] 81 mg PO DAILY 03/04/17 [History] Atorvastatin [Lipitor] 40 mg PO HS 03/04/17 [History] Clopidogrel [Plavix] 75 mg PO DAILY 03/04/17 [History] Lisinopril [Zestril] 20 mg PO DAILY 03/04/17 [History] Metoprolol [Lopressor] 25 mg PO BID 03/04/17 [History] Omeprazole [PriLOSEC] 20 mg PO DAILY 03/04/17 [History] Pregabalin [Lyrica] 200 mg PO TID 03/04/17 [History] metFORMIN [Glucophage] 500 mg PO 0800 03/04/17 [History] OxyCODONE/APAP 5/325 [Percocet 5/325 MG] 1 each PO Q6HR PRN #25 tablet 03/05/17 [Rx] Docusate Sodium [Colace] 100 mg PO BID #20 capsule 03/14/17 [Rx] OxyCODONE/APAP 5/325 [Percocet 5/325 MG] 1 each PO Q6HR PRN #9 tablet 03/14/17 [ Rx] 3 Allergy/AdvReac Type Severity Reaction Status Date / Time No Known Allergies Allergy Verified 03/04/17 09:45 All Systems PM: A 10-system review of systems was performed and is negative for pertinent findings except as documented above in the HPI. Review of systems: ROS 14 point review of systems reviewed as best as possible given presentation. Pertinent positive or negative as per HPI or otherwise reviewed as negative - Constitutional Vitals: Temp Pulse Resp BP Pulse Ox 97.9 F 59 16 94/61 95 05/23/17 17:22 05/23/17 19:13 05/23/17 19:13 05/23/17 19:13 05/23/17 17:22 Exam: General - AAO x 3 Psych - Appropriate affect/speech. No agitation Eyes - VLADIMIR. Eye lids intact. No scleral icterus Neuro - No gross peripheral or central neuro deficits on inspection Heart - Sinus. RRR. S1 and S2 present. No added HS/murmurs appreciated. No elevated JVD appreciated. Lung - Adequate air entry b/l, No crackles/wheezes appreciated GI - Soft, non-tender. No hepatosplenomegaly/ascites. BS+ - No CVA/suprapubic tenderness or palpable bladder distension Skin - Intact. No rash/petechiae/ecchymosis. Warm extremities. +1 b/l LE edema MSK - b/l knee scar. right knee with swelling and some warmth Internal Med - H&P Results - Labs CBC & Chem 7: 05/23/17 15:24 05/23/17 16:17 Labs: Short CBC 05/23/17 Range/Units 15:24 WBC 12.2 H (4.3-11.1) K/mcL Hgb 11.2 L (12.9-16.9) g/dL Hct 33.3 L (37.5-50.1) % Plt Count 324 (140-400) K/mcL Neutrophils # 9.1 H (1.6-8.9) K/mcL BMP 05/23/17 16:17 Sodium 119 L* Potassium 6.0 H Chloride 92 L Carbon Dioxide 21 L BUN 21 Creatinine 1.70 H Glucose 102 Calcium 8.9 - Impressions ITS Impressions Knee X-Ray 05/23/17 14:44 IMPRESSION: Large soft tissue swelling and irregularity of the appearance and morphology of the patella. Integrity of the patellar resurfacing is indeterminate. Follow-up could be considered with CT. D/ / 05/23/2017 15:36:25 Angel Arvizu MD / diana Interpreting Provider: Angel Arvizu MD Knee CT 05/23/17 17:15 IMPRESSION: 1. Large mildly complex and nonspecific joint effusion. Findings do result in mass effect upon the patella which appears tilted and subluxed laterally. Fluid could be posttraumatic given history of trauma. If there is clinical suspicion for infection, arthrocentesis is recommended. 2. The patient is status post right total knee arthroplasty. No evidence for hardware loosening or periprosthetic fracture. 3. Atherosclerotic disease. D/ / Price Nation MD / Price Nation MD Interpreting Provider: Price Nation MD
[2017-05-23] MEDS ORDERED: D5% in Water 1,000 ML IVC PRN (20:05)
[2017-05-23] MEDS ORDERED: Dextrose Gel 15 GM/37.5 ML TUBE PO PRN ×2 (20:05)
[2017-05-23] MEDS ORDERED: *HR* Dextrose 50 % in Water (Syg) 50 ML SYRINGE IVP PRN (20:05)
[2017-05-23 20:22] LABS: Appearance,Synovial Fluid Cloudy (Clear-Hazy); Color,Synovial Fluid Amber (Straw)
[2017-05-23] MEDS ORDERED: cefTRIAXone 1,000 MG in Water for inj. (sterile) 10 ML IVP ONE (20:25)
[2017-05-23] MEDS ORDERED: cefTRIAXone 1,000 MG in Water for inj. (sterile) 20 ML 20 ML IVP ONE (21:00)
[2017-05-23] MEDS: Pregabalin 50 MG CAPSULE PO SCH (23:20)
[2017-05-23] MEDS: 0.9 % Sodium Chloride 1,000 ML IVC SCH (23:20)
[2017-05-23] MEDS: Insulin LISPRO 300 UNITS/3 ML VIAL SQ SCH (23:21)
[2017-05-23] MEDS: *HR* Enoxaparin 40 MG/0.4 ML SYRINGE SQ SCH (23:26)
[2017-05-24 03:53] LABS: INR 1.2; Prothrombin Time 12.6 Seconds (9.4-12.1)
[2017-05-24 03:56] LABS: Activated Partial Thrombo Time 28.9 Seconds (26.0-36.0)
[2017-05-24 04:07] LABS: Calcium 8.8 mg/dL (8.6-10.3); Potassium 4.9 mEq/L (3.5-5.1)
[2017-05-24 04:21] LABS: Basophils # 0.1 K/mcL (0.0-0.2); Basophils % 0.9 %; Eosinophils # 0.3 K/mcL (0.0-0.6); Eosinophils % 3.4 %; Hematocrit 31.9 % (37.5-50.1); Hemoglobin 10.6 g/dL (12.9-16.9); Immature Granulocytes % 1.7 % (0-4); Lymphocytes % 22.1 %; Mean Corpuscular HGB Conc 33.2 g/dL (31.6-35.5); Mean Corpuscular Volume 90.4 fL (83.0-100.0); Mean Platelet Volume 10.8 fL (9.4-12.4); Monocytes # 1.3 K/mcL (0.0-1.3); Monocytes % 14.1 %; Neutrophils # 5.1 K/mcL (1.6-8.9); Platelet Count 312 K/mcL (140-400); Red Blood Count 3.53 M/mcL (4.19-5.50); Red Cell Distribution Width 14.3 % (11.5-14.5); Segmented Neutrophils % 57.8 %
[2017-05-24] MEDS: Nicotine 21 MG PATCH.TD24 TD SCH ×2 (04:54→08:36)
[2017-05-24] MEDS: *HR* Enoxaparin 40 MG/0.4 ML SYRINGE SQ SCH (06:26)
[2017-05-24] MEDS: Aspirin Enteric Coated 81 MG Tablet PO SCH (08:34)
[2017-05-24] MEDS: Pregabalin 50 MG CAPSULE PO SCH ×3 (08:35→22:35)
[2017-05-24] MEDS: Insulin LISPRO 300 UNITS/3 ML VIAL SQ SCH ×4 (08:35→22:36)
[2017-05-24] MEDS: 0.9 % Sodium Chloride 1,000 ML IVC SCH (08:39)
[2017-05-24] MEDS: Vancomycin 1,250 MG in D5% in Water 250 ML IVPB SCH (08:40)
[2017-05-24] MEDS ORDERED: Lisinopril 20 MG TABLET PO SCH (09:00)
--- NOTE | 2017-05-24 11:26 | Internal Med Progress Note ---
Date of Encounter: 05/24/17 Time of Encounter: 09:00 - Assessment and plan (1) Septic arthritis of knee Current Visit: Yes Status: Acute Assessment and plan: Status post I&D. Fluid was turbid with positive white cells, no crystals. Patient is currently day #2 IV vancomycin and IV Rocephin. Awaiting culture. Of concern is patient has hardware in his knee from a knee replacement 2 years ago. Await for further orthopedic recommendations. Qualifiers: Septic arthritis organism: due to unspecified organism Laterality: right Qualified Code(s): M00.9 - Pyogenic arthritis, unspecified (2) Abdominal aortic aneurysm Current Visit: No Status: Chronic Qualifiers: Presence of rupture: without rupture Qualified Code(s): I71.4 - Abdominal aortic aneurysm, without rupture (3) Essential hypertension Current Visit: No Status: Chronic Assessment and plan: Continue Lopressor 25 mg by mouth twice a day. Lisinopril 20 mg by mouth daily held until status of kidney disease determined. Blood pressure is controlled. Monitor (4) Mixed hyperlipidemia Current Visit: No Status: Chronic Assessment and plan: Continue Lipitor 40 mg by mouth daily (5) Tobacco abuse Current Visit: No Status: Chronic Assessment and plan: Counseling offered. Cessation is strongly recommended (6) Hyponatremia Current Visit: Yes Status: Acute Assessment and plan: Suspect this is hypovolemic hyponatremia. Continue with IV fluids If does not improve with IV fluids, then would consider further workup eg SIADH (7) CAD (coronary artery disease) Current Visit: Yes Status: Acute Assessment and plan: Stable, no angina Qualifiers: Coronary Disease-Associated Artery/Lesion type: unspecified vessel or lesion type [place] vs. 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 Continue with IV fluids. If does not improve we will get an ultrasound. Avoid unnecessary nephrotoxins. Hold lisinopril for now. - Time Spent With Patient 25 - 35 minutes - Subjective Interval history: Right knee pain - Constitutional Vitals: Temp Pulse Resp BP Pulse Ox 98.1 F 60 16 110/64 93 05/24/17 07:50 05/24/17 07:50 05/24/17 07:50 05/24/17 07:50 05/24/17 07:50 General appearance: Present: mild distress, A&O X 3, pleasant - Head Head exam: Present: atraumatic, normocephalic - Eye Eye exam: Present: conjuntiva pink, sclera anicteric - Neck Neck exam general surgery: Present: supple, trachea midline. Absent: lymphadenopathy - Respiratory Respiratory exam: Present: CTAB. Absent: accessory muscle use, rales, rhonchi, wheezes - Cardiovascular Cardiovascular exam: Present: RRR, +S1, +S2. Absent: diastolic murmur, gallop, rubs, systolic murmur - GI/Abdominal GI/Abdominal exam: Present: normal bowel sounds, soft, no peritoneal signs. Absent: distended, tenderness - Extremities Exam Additional comments: Right knee is swollen and only tender, warm. The bandage over his I&D site area and he also has a surgical scar from prior joint replacement. - Neurological Exam Neurological exam: Present: CN II-XII intact, oriented X3, no focal deficits. Absent: pronater drift, facial droop, speech deficit - Skin Skin exam: Present: dry, intact Internal Medicine: Result - Labs CBC & Chem 7: 05/24/17 03:15 05/24/17 03:15 Labs: Short CBC 05/24/17 Range/Units 03:15 WBC 8.9 (4.3-11.1) K/mcL Hgb 10.6 L (12.9-16.9) g/dL Hct 31.9 L (37.5-50.1) % Plt Count 312 (140-400) K/mcL Neutrophils # 5.1 (1.6-8.9) K/mcL BMP 05/24/17 03:15 Sodium 122 L Potassium 4.9 Chloride 93 L Carbon Dioxide 23 BUN 23 Creatinine 1.76 H Glucose 82 Calcium 8.8 - ABG Interpretation ABG results: PT/INR, D-dimer PT 12.6 Seconds (9.4-12.1) H 05/24/17 03:15 Consult Discharge Plan - Plan Referrals: Chuckie Byrne DO [Primary Care Provider] -
[2017-05-24] MEDS ORDERED: 0.9 % Sodium Chloride 1,000 ML IVC SCH (11:39)
--- NOTE | 2017-05-24 11:48 | Orthopedics Progress Note ---
Date of Encounter: 05/24/17 Time of Encounter: 11:46 - Assessment and Plan (1) Pain and swelling of right knee Current Visit: Yes Status: Acute Subjective Interval history: S: Resting in bed comfortably. No new injuries or complaints. Significant improvement of his right knee pain after the aspiration. O: Afebrile and vital signs are stable Right knee with slight reaccumulation of fluid though no ordinary like yesterday. Mild pain with passive motion of the knee Instability to the patella He can dorsiflex and plantarflex the ankle and toes and the foot is sensate and well-perfused Gram stain negative Cell count cannot be performed due to the viscosity of the fluidA: A: Right knee effusion, presumed infection given cloudiness of the fluid from yesterday P: I did discuss the patient with Dr. Crump, my partner, who will evaluate the patient's right knee tomorrow to provide further treatment recommendation No plans for surgical management today. Nothing by mouth after midnight in case Dr. Crump plans on any operative intervention. Objective Vital signs: Vital Signs Temp Pulse Resp BP Pulse Ox 05/24/17 11:00 97.7 F 56 18 107/68 97 05/24/17 07:50 98.1 F 60 16 110/64 93 05/24/17 03:38 98.0 F 51 18 117/61 98 05/24/17 00:37 97.8 F 50 17 113/58 99 05/24/17 00:03 94 05/23/17 21:24 98.0 F 58 17 90/57 94 Intake and Output 05/23/17 05/24/17 05/24/17 23:59 07:59 15:59 Intake Total 0 / 0 0 / 0 Output Total 0 / 0 0 / 0 Balance 0 / 0 0 / 0 Intake: Oral 0 / 0 0 / 0 Output: Urine 0 / 0 0 / 0 Other: # Voids 1 Weight 116.7 kg Blood Glucose* 161 103 148 - Labs CBC & BMP: 05/24/17 03:15 05/24/17 03:15 Labs: Abnormal lab results RBC 3.53 M/mcL (4.19-5.50) L 05/24/17 03:15 Hgb 10.6 g/dL (12.9-16.9) L 05/24/17 03:15 Hct 31.9 % (37.5-50.1) L 05/24/17 03:15 ESR 124 mm/hr (0-10) H 05/23/17 15:24 PT 12.6 Seconds (9.4-12.1) H 05/24/17 03:15 Sodium 122 mEq/L (136-145) L 05/24/17 03:15 Chloride 93 mEq/L (98-107) L 05/24/17 03:15 Creatinine 1.76 mg/dL (0.70-1.30) H 05/24/17 03:15 Est GFR ( Amer) 47 (> 60) L 05/24/17 03:15 Est GFR (Non-Af Amer) 39 (> 60) L 05/24/17 03:15 POC Glucose 161 (58-89) H 05/23/17 21:38 Calculated Osmolality 257 (280-300) L 05/24/17 03:15 Lactic Acid < 0.2 mmol/L (0.5-2.2) L 05/24/17 03:15 C-Reactive Protein 106 mg/L (Less than 10) H 05/23/17 16:17 Synovial Appearance Cloudy (Clear-Hazy) A 05/23/17 18:51 Consult Discharge Plan - Plan Referrals: Chuckie Byrne DO [Primary Care Provider] -
[2017-05-24] MEDS: *HR* OxyCODONE/APAP 5/325 TABLET PO PRN (12:02)
[2017-05-24] MEDS: cefTRIAXone 1,000 MG in Water for inj. (sterile) 20 ML 10 ML IVP SCH (22:35)
[2017-05-25] MEDS: *HR* OxyCODONE/APAP 5/325 TABLET PO PRN ×2 (04:15→21:52)
[2017-05-25 04:36] LABS: Basophils # 0.1 K/mcL (0.0-0.2); Basophils % 1.3 %; Eosinophils # 0.2 K/mcL (0.0-0.6); Eosinophils % 2.4 %; Hematocrit 32.1 % (37.5-50.1); Hemoglobin 10.9 g/dL (12.9-16.9); Immature Granulocytes % 1.3 % (0-4); Lymphocytes # 1.2 K/mcL (0.6-4.6); Lymphocytes % 15.6 %; Mean Corpuscular Hemoglobin 30.4 pg (28.0-33.3); Mean Corpuscular Volume 89.7 fL (83.0-100.0); Mean Platelet Volume 10.5 fL (9.4-12.4); Monocytes # 1.1 K/mcL (0.0-1.3); Monocytes % 13.2 %; Neutrophils # 5.3 K/mcL (1.6-8.9); Platelet Count 321 K/mcL (140-400); Red Blood Count 3.58 M/mcL (4.19-5.50); Red Cell Distribution Width 14.1 % (11.5-14.5); Segmented Neutrophils % 66.2 %
[2017-05-25] MEDS: *HR* Enoxaparin 40 MG/0.4 ML SYRINGE SQ SCH (06:04)
--- NOTE | 2017-05-25 06:52 | Orthopedics Progress Note ---
Date of Encounter: 05/25/17 Time of Encounter: 06:51 Subjective Interval history: Patient seen this morning cultures negative to date right knee swollen. Patient would like to do with right knee has an outpatient clinically not septic okay to discharge and follow-up outpatient when stable. Objective Vital signs: Vital Signs Temp Pulse Resp BP Pulse Ox 05/25/17 05:00 98 F 68 20 113/64 94 05/24/17 22:05 97 05/24/17 19:48 98.2 F 62 21 131/69 97 05/24/17 16:14 98.2 F 60 18 97 05/24/17 11:00 97.7 F 56 18 107/68 97 05/24/17 07:50 98.1 F 60 16 110/64 93 Intake and Output 05/24/17 05/24/17 05/25/17 15:59 23:59 07:59 Intake Total 1360 / 1360 240 / 240 0 / 0 Balance 1360 / 1360 240 / 240 0 / 0 Intake: IV Fluids 1000 / 1000 0.9 % Sodium Chloride 1,000 ML 1000 / 1000 @ 75 mls/hr IVC .[id number] NAVI Rx #:[id number] Oral 360 / 360 240 / 240 0 / 0 Other: Meal Lunch Dinner Percent of Meal Consumed 100% 100% # Voids 1 3 Weight 113.5 kg Blood Glucose* 148 107 Patient Weight 05/25/17 23:59 Weight 113.5 kg - Labs CBC & BMP: 05/25/17 04:10 05/24/17 03:15 Labs: Abnormal lab results RBC 3.58 M/mcL (4.19-5.50) L 05/25/17 04:10 Hgb 10.9 g/dL (12.9-16.9) L 05/25/17 04:10 Hct 32.1 % (37.5-50.1) L 05/25/17 04:10 ESR 124 mm/hr (0-10) H 05/23/17 15:24 PT 12.6 Seconds (9.4-12.1) H 05/24/17 03:15 Sodium 122 mEq/L (136-145) L 05/24/17 03:15 Chloride 93 mEq/L (98-107) L 05/24/17 03:15 Creatinine 1.76 mg/dL (0.70-1.30) H 05/24/17 03:15 Est GFR ( Amer) 47 (> 60) L 05/24/17 03:15 Est GFR (Non-Af Amer) 39 (> 60) L 05/24/17 03:15 POC Glucose 115 (58-89) H 05/24/17 16:16 Calculated Osmolality 257 (280-300) L 05/24/17 03:15 C-Reactive Protein 106 mg/L (Less than 10) H 05/23/17 16:17 Synovial Appearance Cloudy (Clear-Hazy) A 05/23/17 18:51 Consult Discharge Plan - Plan Referrals: Chuckie Byrne DO [Primary Care Provider] -
[2017-05-25] MEDS: Insulin LISPRO 300 UNITS/3 ML VIAL SQ SCH ×4 (07:57→21:51)
[2017-05-25] MEDS: Pregabalin 50 MG CAPSULE PO SCH ×3 (09:00→21:53)
[2017-05-25] MEDS: Nicotine 21 MG PATCH.TD24 TD SCH (09:01)
[2017-05-25] MEDS: Aspirin Enteric Coated 81 MG Tablet PO SCH (09:01)
[2017-05-25 09:29] LABS: Calcium 8.6 mg/dL (8.6-10.3); Potassium 4.7 mEq/L (3.5-5.1)
[2017-05-25] MEDS ORDERED: *HR* OxyCODONE Immed Rel 5 MG TABLET PO PRN (10:12)
[2017-05-25] MEDS: Vancomycin 1,250 MG in D5% in Water 250 ML IVPB SCH (10:25)
[2017-05-25] MEDS: cefTRIAXone 1,000 MG in Water for inj. (sterile) 20 ML 10 ML IVP SCH (21:52)
[2017-05-25] MEDS ORDERED: 0.9 % Sodium Chloride 1,000 ML IVC SCH (22:00)
--- NOTE | 2017-05-25 22:53 | Internal Med Progress Note ---
Date of Encounter: 05/25/17 Time of Encounter: 12:52 - Assessment and plan (1) Septic arthritis of knee, right Current Visit: Yes Status: Acute Assessment and plan: Status post I&D. Fluid was turbid with positive white cells, no crystals. Patient is currently day #3 IV vancomycin and IV Rocephin. Awaiting culture. Of concern is patient has hardware in his knee from a knee replacement 2 years ago. Ortho okay with outpatient follow-up Will need antibiotics for home. Cultures currently no growth, but show increased white blood cells, no bacteria. CRP elevated at 106, will consider ID consult in AM for follow-up. Qualifiers: Septic arthritis organism: due to unspecified organism Qualified Code(s): M00.9 - Pyogenic arthritis, unspecified (2) Abdominal aortic aneurysm Current Visit: No Status: Chronic Qualifiers: Presence of rupture: without rupture Qualified Code(s): I71.4 - Abdominal aortic aneurysm, without rupture (3) Essential hypertension Current Visit: No Status: Chronic Assessment and plan: Continue Lopressor 25 mg by mouth twice a day. Lisinopril 20 mg by mouth daily held until status of kidney disease determined. Blood pressure is controlled. Monitor (4) Mixed hyperlipidemia Current Visit: No Status: Chronic Assessment and plan: Continue Lipitor 40 mg by mouth daily (5) Tobacco abuse Current Visit: No Status: Chronic Assessment and plan: Counseling offered. Cessation is strongly recommended (6) Hyponatremia Current Visit: Yes Status: Acute Assessment and plan: Suspect this is hypovolemic hyponatremia. Continue with IV fluids Improved with IVF, still low at 125, lowest has been seen at 132 on prior labs. Should monitor and recheck tomorrow. (7) CAD (coronary artery disease) Current Visit: Yes Status: Acute Assessment and plan: Stable, no angina Qualifiers: Coronary Disease-Associated Artery/Lesion type: unspecified vessel or lesion type [place] vs. transplanted heart: [place] heart Associated angina: without angina Qualified Code(s): I25.10 - Atherosclerotic heart disease of [place] coronary artery without angina pectoris (8) Diabetes mellitus Current Visit: Yes Status: Acute Assessment and plan: Reasonable control, monitor Qualifiers: Diabetes mellitus type: type 2 Diabetes mellitus complication status: without complication Diabetes mellitus exterminator termite insulin use: without senior care use Qualified Code(s): E11.9 - Type 2 diabetes mellitus without complications (9) Acute kidney injury Current Visit: Yes Status: Acute Assessment and plan: Not know if he has chronic kidney disease. Continue with IV fluids. If does not improve we will get an ultrasound. Avoid unnecessary nephrotoxins. Hold lisinopril for now. - Subjective Interval history: No complaints, no acute events. - Constitutional Vitals: Temp Pulse Resp BP Pulse Ox 98.8 F 90 18 123/86 96 05/25/17 21:04 05/25/17 21:04 05/25/17 21:04 05/25/17 21:04 05/25/17 21:04 General appearance: Present: A&O X 3, pleasant, no acute distress Exam: Head exam: Present: atraumatic, normocephalic - Eye Eye exam: Present: conjuntiva pink, sclera anicteric - Neck Neck exam general surgery: Present: supple, trachea midline. Absent: lymphadenopathy - Respiratory Respiratory exam: Present: CTAB. Absent: accessory muscle use, rales, rhonchi, wheezes - Cardiovascular Cardiovascular exam: Present: RRR, +S1, +S2. Absent: diastolic murmur, gallop, rubs, systolic murmur - GI/Abdominal GI/Abdominal exam: Present: normal bowel sounds, soft, no peritoneal signs. Absent: distended, tenderness - Extremities Exam Additional comments: Right knee is swollen and only tender, warm. The bandage over his I&D site area and he also has a surgical scar from prior joint replacement. - Neurological Exam Neurological exam: Present: CN II-XII intact, oriented X3, no focal deficits. Absent: pronater drift, facial droop, speech deficit - Skin Skin exam: Present: dry, intact Internal Medicine: Result - Labs CBC & Chem 7: 05/25/17 04:10 05/25/17 04:10 Labs: Short CBC 05/25/17 Range/Units 04:10 WBC 8.0 (4.3-11.1) K/mcL Hgb 10.9 L (12.9-16.9) g/dL Hct 32.1 L (37.5-50.1) % Plt Count 321 (140-400) K/mcL Neutrophils # 5.3 (1.6-8.9) K/mcL BMP 05/25/17 04:10 Sodium 125 L Potassium 4.7 Chloride 97 L Carbon Dioxide 21 L BUN 24 H Creatinine 1.64 H Glucose 98 Calcium 8.6 - ABG Interpretation ABG results: PT/INR, D-dimer PT 12.6 Seconds (9.4-12.1) H 05/24/17 03:15 Consult Discharge Plan - Plan Referrals: Chuckie Byrne DO [Primary Care Provider] -
[2017-05-26 05:00] LABS: Basophils # 0.1 K/mcL (0.0-0.2); Basophils % 1.1 %; Eosinophils # 0.2 K/mcL (0.0-0.6); Eosinophils % 3.2 %; Hematocrit 33.7 % (37.5-50.1); Hemoglobin 11.2 g/dL (12.9-16.9); Immature Granulocytes % 1.4 % (0-4); Lymphocytes # 1.9 K/mcL (0.6-4.6); Lymphocytes % 26.1 %; Mean Corpuscular HGB Conc 33.2 g/dL (31.6-35.5); Mean Corpuscular Hemoglobin 29.8 pg (28.0-33.3); Mean Corpuscular Volume 89.6 fL (83.0-100.0); Mean Platelet Volume 10.4 fL (9.4-12.4); Monocytes # 0.9 K/mcL (0.0-1.3); Neutrophils # 4.1 K/mcL (1.6-8.9); Platelet Count 352 K/mcL (140-400); Red Blood Count 3.76 M/mcL (4.19-5.50); Segmented Neutrophils % 56.2 %
[2017-05-26 05:21] LABS: BUN/Creatinine Ratio 16 (6-26); Blood Urea Nitrogen 23 mg/dL (8-23); Calcium 8.8 mg/dL (8.6-10.3); Carbon Dioxide 20 mEq/L (23-29); Chloride 101 mEq/L (98-107); Glucose 102 mg/dL (70-105); Osmolality,Calculated 274 (280-300); Potassium 4.6 mEq/L (3.5-5.1); Sodium 130 mEq/L (136-145); eGFR For African Americans > 60 (> 60); eGFR For Non-African Americans 50 (> 60)
[2017-05-26] MEDS: *HR* Enoxaparin 40 MG/0.4 ML SYRINGE SQ SCH (06:13)
[2017-05-26] MEDS: Pregabalin 50 MG CAPSULE PO SCH ×2 (08:22→14:33)
[2017-05-26] MEDS: Aspirin Enteric Coated 81 MG Tablet PO SCH (08:22)
[2017-05-26] MEDS: Nicotine 21 MG PATCH.TD24 TD SCH (08:22)
[2017-05-26] MEDS: *HR* OxyCODONE/APAP 5/325 TABLET PO PRN (08:25)
[2017-05-26] MEDS: Insulin LISPRO 300 UNITS/3 ML VIAL SQ SCH ×3 (09:41→16:32)
--- NOTE | 2017-05-26 11:02 | Infectious Disease Consult ---
Date of Encounter: 05/26/17 Time of Encounter: 11:02 Assessment and Plan (1) Pain and swelling of right knee Status: Acute Assessment and plan: 66-year-old male presenting with right knee pain. 2 weeks ago patient had a fall while walking up his porch where he twisted his right knee with progressive worsening effusion. 3 days before admission right knee became red, hot with loss of flexion and extension. History of bilateral knee replacements at [facility]. Right knee replacement in 2013 with revision in 2014 due to patellar dislocation. Reports recurrent right knee effusions in the past with arthrocentesis. Denies history of joint infection. Status post arthrocentesis by orthopedic surgery: 335 mL of purulent, cloudy fluid drained. WBC 12.2 on admission now 7.2. Afebrile. ESR 124 CRP 106. Cell count not completed due to hyperviscosity. No Crystals seen started on vancomycin and Rocephin. Gram stain negative. Synovial fluid culture is negative. Orthopedic surgery evaluated the patient yesterday cleared him for discharge with outpatient follow-up. Currently right knee is without erythema, increase in pleural effusion after arthrocentesis. Patient does have any SIRS criteria plan: swelling and injury 2nd to trauma rather than infection. negative gram stain, negative cultures. only met one sirs criteria of leukocytosis (12.2) which has resolved. d/c antibiotics. Follow up with orthopedic surgery in one week. (2) Acute kidney injury Status: Resolved Assessment and plan: improving as per primary Crcl 65 (3) Diabetes mellitus Status: Acute Assessment and plan: hx of non-insulin dependent DM management as per surgery Qualifiers: Diabetes mellitus type: type 2 Diabetes mellitus complication status: without complication Diabetes mellitus retirement insulin use: without retirement use Qualified Code(s): E11.9 - Type 2 diabetes mellitus without complications (4) Hyponatremia Status: Acute Assessment and plan: improving as per primary team (5) Essential hypertension Status: Chronic Assessment and plan: controlled (6) Tobacco abuse Status: Chronic Assessment and plan: 46 pack year history Infectious Disease HPI - Data of Consult Patient: new to practice Consult date: 05/26/17 Requesting Physician: Luis Chavez DO Primary Care Provider: Chuckie Byrne DO - Consult Narrative Reason for consult: evaluate right knee septic arthritis History of present illness: Mr. Rueda is a 66 year old male presented on 1/27/18 with chief complaint of right knee pain. Infectious disease was consult around 05/26/2017 for antibiotic recommendations for septic arthritis of the right knee. Patient is a 66-year-old male with history of diabetes, bilateral knee replacement, with left knee replacement in 2012 and right knee replacement in 2013 at [facility]. Patient reports after right knee replacement he had experienced disclocation of his patella and was reevaluated by orthopedic surgery at [facility] and underwent revision of right knee replacement. Since then patient has been experiencing right knee swelling and previously has had a right knee arthrocentesis. Thereafter patient was followed by [facility] and was planned to have another revision of his right knee however was found to have a abdominal aortic aneurysm. Patient underwent AAA repair by Dr. Saldana last year. Patient reports 2 weeks ago he was stepping up the stairs of his porch. He initially started his right knee and immediately felt his right patella move laterally and states he twisted his right knee and fell. He denies coming into contact with the ground with his right knee. After that patient's right knee began to swell progressively increasing amount of pain. 3 days before admission patient states the swelling became severe, his right knee became red, hot with pain 9 out of 10. He could not flex or extend his knee. He denies fever, chills. Patient also denied headache, blurry vision, chest pain, palpitations, shortness of breath, productive sputum, abdominal pain, nausea, vomiting, diarrhea, numbness, tingling, lower extremity weakness, lower extremity swelling. Patient lives by himself at home with 2 dogs, denies IV drug use, is a current smoker for the last 46 years, has occasional alcohol use. He denies any allergies to medications. 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 He denies any sick contacts. On arrival patient was afebrile, normotensive. White blood cell count was 12.2. ESR was 124. CRP was 106. Lactic acid was less than 0.2. Sodium was 119. Potassium 60. Right knee x-ray showed large soft tissue swelling. Patient also underwent bilateral venous duplex which were negative for any DVT. CT right knee showed large complex joint effusion with subluxed patella laterally. He underwent bedside arthrocentesis by orthopedic surgery with removal of 370 mL of bloody/purulent fluid. Gram stain of the fluid was negative. Preliminary cultures and all fluid was negative. Synovial fluid cell count was not performed due to high viscosity, and no crystals were seen. Patient was started on vancomycin and Rocephin. Yesterday patient was evaluated by orthopedic surgery who cleared for discharge and with follow-up outpatient. ID consult was placed today for antibiotic recommendations. This morning patient states his right knee pain has decreased considerably and he is able to flex and extend his knee. He reports after the initial arthrocentesis right knee fluid has reaccumulated. The right knee is not as erythematous as on admission. He still reports pain with movement. CC: Luis Chavez, DO Past Med Surg Social Fam HX - Past Medical History Medical history: diabetes, GERD, hyperlipidemia, hypertension, myocardial infarction Psychiatric history: no psych history - Past Surgical History Surgical History: other - Social History Smoking Status: Current every day smoker Packs per day: 1 Smokeless Tobacco Status: No Alcohol use: occasionally Drug use: none Infectious Disease-CN:Meds Aspirin [Lo-Dose Aspirin EC] 81 mg PO DAILY 03/04/17 [History] Atorvastatin [Lipitor] 40 mg PO HS 03/04/17 [History] Clopidogrel [Plavix] 75 mg PO DAILY 03/04/17 [History] Lisinopril [Zestril] 20 mg PO DAILY 03/04/17 [History] Metoprolol [Lopressor] 25 mg PO BID 03/04/17 [History] Omeprazole [PriLOSEC] 20 mg PO DAILY 03/04/17 [History] Pregabalin [Lyrica] 200 mg PO TID 03/04/17 [History] metFORMIN [Glucophage] 500 mg PO 0800 03/04/17 [History] Docusate Sodium [Colace] 100 mg PO BID #20 capsule 03/14/17 [Rx] DULoxetine [Cymbalta] 90 mg PO DAILY 05/24/17 [History] 3 Allergy/AdvReac Type Severity Reaction Status Date / Time No Known Allergies Allergy Verified 05/24/17 17:20 Review of systems: Constitutional: Denies fever, chills HEENT: Denies headache, vision changes, neck pain, sore throat, rhinorrhea Heart: Denies chest pain palpitations Lungs: Denies shortness of breath cough Abdomen: Denies abdominal pain nausea vomiting diarrhea Back: Denies back pain Kidney: Denies dysuria, hematuria Skin: warm and dry Extremities: Reports right knee pain and swelling and erythema. Neuro: Denies numbness, and tingling Exam - Constitutional Vitals: Temp Pulse Resp BP Pulse Ox 98.1 F 86 15 129/73 94 05/26/17 07:03 05/26/17 07:03 05/26/17 07:03 05/26/17 07:03 05/26/17 07:03 - Additional findings Additional findings: General: Pleasant without distress HEENT: Head atraumatic, normocephalic, EOMI, PERRL, neck nontender to palpation , absent lymphadenopathy, Moist Mucous Membranes, only 5 teeth noted. No gum disease. Heart: Regular rate and rhythm with no murmur Lungs: Clear to auscultation bilaterally Abdomen: Soft nontender, nondistended positive bowel sounds Skin: warm and dry Extremities: Absent pedal edema, right knee effusion, warmth to touch, without erythema with pain upon flexion and extension. Neuro: Cranial nerves II through XII intact, UE and LE sensation equal bilaterally, UE and LEstrength 5/5, alert oriented 3 Vascular: Pedal and radial pulses 2 out of 4 Infectious Disease CN: Results - Labs CBC & Chem 7: 05/26/17 04:38 05/26/17 04:38 Consult Discharge Plan - Plan Referrals: Chuckie Byrne DO [Primary Care Provider] - - Attending Attestation I examined this patient and my medical decision-making was reviewed with the Resident Physician. I agree with the documented findings, disposition and treatment plan as described except to the extent set forth below. This is an addendum to original report dictated by resident physician. Please refer to residents note for full detail. Patient is a 66-year-old gentleman with past medical history mentioned below and social history mentioned below including tobacco abuse and EtOH use but apparently has had chronic knee issues. Initially he had total knee arthroplasty bilateral done at [place] or [facility] if I recall correctly and apparently patient did not get along fine with the orthopedic surgeon. Patient continued to have chronic pain since the surgery and swelling. Eventually patient was evaluated by and Dr. Crump Recommended surgery but patient wasnt ready for that. Patient had a trauma to his knee where he twisted it going up the stairs and he had swelling and pain and some redness. Patient denied any fevers or chills at home denied any night sweats denies any warmth to touch. Patient came was evaluated had an arthrocentesis done and the Gram stain and cultures were both negative. Cell count was not obtained because the fluid was too viscus. I spoke with chemistry labs myself and they said they try to run and they couldnt. We also called orthopedics to see if they still have the Synorvasure but it doesnt appear that they still have it. Clinically patient is doing great and he is ready to go home. I did speak with the orthopedic team and they thing the patient will need surgery eventually. They want a follow-up with him as an outpatient in one week. After long discussion with the patient discussed stopping all antibiotics and observing to see if the infection reveals itself and may well have another arthrocentesis and patient is okay with that. We will stop all antibiotics and if there is any signs of infection patient will let us know and we will reevaluate. Currently in physical exam is unremarkable other than for chronic swelling of his knee no limited range of motion no warmth to touch no erythema. Keep in mind that the patient and her for a few days. Orthopedics recommendation answers mind is to stop everything and wait and observe and the if the infection reveals itself we will re-tap the joint get adequate specimen repeat cultures and cell counts. If signs of infection patient s joints well probably have to come out. No further recommendation we will sign off please let us know if we could be of any more assistance.
[2017-05-26] MEDS: Vancomycin 1,250 MG in D5% in Water 250 ML IVPB SCH (11:08)
[2017-05-26 15:27] VITALS: BP 118/72
--- NOTE | 2017-05-26 17:27 | Discharge Summary ---
Date of Encounter: 05/26/17 Time of Encounter: 17:24 - Discharge Diagnosis (1) Pain and swelling of right knee Priority: Primary Status: Acute Comments: Less likely septic joint, evaluated by both Ortho and Infectious Disease, this is more likely due to trauma. (2) Acute kidney injury Priority: Secondary Status: Resolved (3) Abdominal aortic aneurysm Priority: Secondary Status: Chronic Qualifiers: Presence of rupture: without rupture Qualified Code(s): I71.4 - Abdominal aortic aneurysm, without rupture (4) Essential hypertension Priority: Secondary Status: Chronic (5) Mixed hyperlipidemia Priority: Secondary Status: Chronic (6) Tobacco abuse Priority: Secondary Status: Chronic (7) Hyponatremia Priority: Secondary Status: Acute (8) CAD (coronary artery disease) Priority: Secondary Status: Acute Qualifiers: Coronary Disease-Associated Artery/Lesion type: unspecified vessel or lesion type [place] vs. transplanted heart: [place] heart Associated angina: without angina Qualified Code(s): I25.10 - Atherosclerotic heart disease of [place] coronary artery without angina pectoris (9) Diabetes mellitus Priority: Secondary Status: Acute Qualifiers: Diabetes mellitus type: type 2 Diabetes mellitus complication status: without complication Diabetes mellitus medical terminologist insulin use: without longterm use Qualified Code(s): E11.9 - Type 2 diabetes mellitus without complications - Discharge Medications Home Medications: Aspirin [Lo-Dose Aspirin EC] 81 mg PO DAILY 03/04/17 [History] Atorvastatin [Lipitor] 40 mg PO HS 03/04/17 [History] Clopidogrel [Plavix] 75 mg PO DAILY 03/04/17 [History] Lisinopril [Zestril] 20 mg PO DAILY 03/04/17 [History] Metoprolol [Lopressor] 25 mg PO BID 03/04/17 [History] Omeprazole [PriLOSEC] 20 mg PO DAILY 03/04/17 [History] Pregabalin [Lyrica] 200 mg PO TID 03/04/17 [History] metFORMIN [Glucophage] 500 mg PO 0800 03/04/17 [History] Docusate Sodium [Colace] 100 mg PO BID #20 capsule 03/14/17 [Rx] DULoxetine [Cymbalta] 90 mg PO DAILY 05/24/17 [History] Allergies/Adverse Reactions: 3 Allergy/AdvReac Type Severity Reaction Status Date / Time No Known Allergies Allergy Verified 05/24/17 17:20 Procedures/tests Complete & Pending: Procedures Performed prior 72 hours Category Date Time Status ECG 12 lead ECG [ECG] Routine Y 05/23/17 20:09 Completed Date of admission: 05/23/17 20:24 Primary care physician: Chuckie Byrne DO Consults: 05/26/17 09:58 Consult to Infectious Diseases [CONS] Routine Consulting Provider: Infectious Disease Carpio Reason for Consult: Possible septic arthritis Call Completed: Yes Discharging clinician: Silke Tidwell - Patient Status Disposition: Home, Self-Care Condition: Fair Functional capacity at discharge: independent ambulation Overall status at discharge: patient is progressing back to baseline - Discharge Instructions Follow Up With: Chuckie Byrne DO [Primary Care Provider] - - Diet and Activity Activity: increase activity as tolerated Hospital course: Mr. Rueda is a 66 year old male who presents with Right knee pain and swelling x 3 days. Admitted for suspected sepsis joint. He experienced right knee swelling x 3 days, throbbing in quality, 01/04 , associated with local swelling. Denies fever/chills. He has b/l knee replacement Right in 2012 and Left in 2013 at [facility]. He reports stepping wrong on left knee 1.5 weeks ago while at his front porch and felt his knee cap "gave out". He had CT of right knee showed joint effusion causing mass effect. He was admitted for concern of septic knee joint. Started on vancomycin and Rocephin. Joint was aspirated by Orthopedic Surgery. Fluid analysis showed elevated white count but no bacterial growth. CRP done was elevated at 106. ID was cosulted as questionable if this was true septic joint. Based on evaluation, this was likely symptoms due to trauma, and not likely sepsis. He had normal WBC and afebrile. He did have decreased sodium on admission of 119. His sodium gradually improved with IVF hydration. Had ARTURO that improved with IV fluid hydration as well, initially 1.7 on admission and now 1.4 on discharge. Patient was discharged home in stable condition. He agrees to follow-up appointment with Orthopedic Surgery Consider repeat BMP - labs are improving. Was instructed if pain worsens, gets fevers, or swelling does not improve, go to ED immediately, - Time Spent with Patient Total time spent providing and/or coordinating discharge services: - Constitutional Vitals: Temp Pulse Resp BP Pulse Ox 98.3 F 58 14 118/72 93 05/26/17 15:23 05/26/17 15:23 05/26/17 15:23 05/26/17 15:23 05/26/17 15:23 General appearance: Present: A&O X 3, pleasant, no acute distress - Head Head exam: Present: atraumatic, normocephalic - Eye Eye exam: Present: PERRL, conjuntiva pink, sclera anicteric Pupils: Present: PERRL - Neck Neck exam general surgery: Present: supple, trachea midline. Absent: lymphadenopathy - Respiratory Respiratory exam: Present: CTAB. Absent: accessory muscle use, rales, rhonchi, wheezes - Cardiovascular Cardiovascular exam: Present: RRR, +S1, +S2. Absent: diastolic murmur, gallop, rubs, systolic murmur - GI/Abdominal GI/Abdominal exam: Present: normal bowel sounds, soft, no peritoneal signs. Absent: distended, tenderness - Extremities Exam Extremities exam: Present: warm, radial pulses palpable and symmetrical. Absent : calf tenderness, cyanotic, pedal edema Additional comments: Right knee joint with large joint effusion. Slightly tender, not erythematous, ROM normal. - Neurological Exam Neurological exam: Present: CN II-XII intact, oriented X3, no focal deficits. Absent: pronater drift, facial droop, speech deficit - Skin Skin exam: Present: dry, intact
[2017-05-26] MEDS ORDERED: Aminoglycoside Consult 1 EACH MC ONE (18:24)
[2017-05-27] MEDS ORDERED: Vancomycin 1,500 MG in D5% in Water 250 ML IVPB SCH (10:00)
== END 2017-05-26 18:25 | disposition home or self-care (01) | DRG 914 ==
LOC: EMEROO 14:25 → 2NENU 14:25 → OBSVTOIN 20:24 → 2NENU 20:58
PROVIDERS: ADMIT Internal Medicine Hematology & Oncology; ATTEND Internal Medicine